=== PATIENT | female | born 1975 | race Caucasian/White ===

== ENCOUNTER 2020-07-05 10:40 | Emergency (ER) | payer OTHER, SELFPAY ==
[2020-07-05 11:55] VITALS: BP 133/85; PULSE 92; RESP 20; TEMP 36.7; O2SAT 99; BMI 33.5
--- NOTE | 2020-07-05 12:09 | HMH.EDUTC ---
[facility] [place] Disposition Clinical Impression: Chronic pruritus Disposition: Home, Self-Care Condition on Discharge: Good Instructions: Scabies, DI for Scabies Additional Instructions: Use the medication as directed. You will continue to have itching for around a week after using the medication. This is to be expected. Follow up with your primary care doctor. You may need to be referred to a bread pan greaser if you continue to have problems with itching. GO TO THE ER FOR ANY WORSENING SYMPTOMS OR CONCERNS Prescriptions: diphenhydrAMINE HCL [Benadryl] 25 mg PO Q6HP PRN #30 cap PRN Reason: Itching Transmission Status: Received by [facility] #[id number] Permethrin [Elimite] 1 applicatio TP ONCE #1 bottle Transmission Status: Received by [facility] #[id number] Referrals: PCP,No [Primary Care Provider] - Time of Disposition: 12:14 Medical Decision Making - Medical Records Medical records reviewed: No: I reviewed the patient's medical records. - Quique Inquiry Pt receiving controlled substance: No Vital Signs: 07/05/20 11:55 07/05/20 12:21 Temperature 98.1 F 98.1 F Temperature Source Oral Pulse Rate 92 H Pulse Rate [Right Brachial] 92 H Respiratory Rate 20 20 Blood Pressure 133/85 Blood Pressure [Right Arm] 133/85 Blood Pressure Mean [Right Arm] 101 Blood Pressure Source [Right Arm] Automatic Cuff Blood Pressure Position [Right Arm] Sitting 02 Sat by Pulse Oximetry 99 Oxygen Delivery Method Room Air [facility] [place] HPI - General Stated complaint: Fleas Time Seen by Provider: 07/05/20 12:09 Mode of Arrival: Ambulatory Source of Information: Patient Limitations: No Limitations Description of Symptoms (Recalled from Triage Doc. by RN): PATIENT STATES APPROX 2-3 MONTHS AGO HER DOGS HAD FLEAS; REPORTS THAT SHE TREATED HER DOGS FOR THE FLEAS AND NOW THEY CAME AFTER HER . C/O FLEA LARVAE UNDER HER SKIN HEENT Symptoms (Recalled from RN notes): No Resp Symptoms (Recalled from RN notes): No Skin Symptoms (Recalled from RN notes): Yes MS Symptoms (Recalled from RN notes): No Functional Status (Recalled from RN notes): WNL - History of Present Illness Provider Complaint: She states that she has been itching all over and she has noted ramsey on her skin where mites have burrowed into her skin. She believes they are flea larva. - Related Data Home Medications Medication Instructions Recorded Confirmed Buprenorphine HCl/Naloxone HCl 1.25 each SL DAILY 07/05/20 07/05/20 [Suboxone 8mg/2mg ODT] Dextroamphetamine/Amphetamine 20 mg PO TID 07/05/20 07/05/20 [Adderall 20 mg Tablet] Gabapentin [Gabapentin 400mg Cap] 800 mg PO TID 07/05/20 07/05/20 SUMAtriptan succinate [Imitrex] 50 mg PO DAILY 07/05/20 07/05/20 Previous Rx's Medication Instructions Recorded Permethrin [Elimite] 1 applicatio TP ONCE #1 bottle 07/05/20 diphenhydrAMINE HCL [Benadryl] 25 mg PO Q6HP PRN #30 cap 07/05/20 Allergies Allergy/AdvReac Type Severity Reaction Status Date / Time No Known Allergies Allergy Verified 07/05/20 12:05 - Worker's Comp Is this a Worker's Comp case?: No [facility] History - Hepatitis A Screen Drug use history?: No High risk sexual behaviors?: No History of sexually transmitted infection?: No Currently employed?: No Childcare worker?: No Do you have indoor plumbing?: Yes Do you have electricity?: Yes Attestation statement:: This patient has been screened for Hepatitis A risk factors. I have reviewed the patient's past medical history: Yes - Social History Alcohol Intake: never Occupational Status: other ROS Obtained: Yes All systems reviewed & no additional complaints - Constitutional Constitutional: Denies chills, Denies fever(s) - ENT Ears, Nose, Mouth, and Throat: Denies sore throat - Cardiovascular Cardiovascular: Denies chest pain - Integumentary/Breasts Skin/Breast: Reports as per HPI Physical Exam - General General appearance: alert, in no apparent distress - Head
[2020-07-05 12:21] VITALS: BP 133/85; PULSE 92; RESP 20; TEMP 36.7; O2SAT 99
== END 2020-07-05 12:25 | disposition home or self-care (01) ==
PROVIDERS: Emergency Provider Nurse Practitioner Family
DX: L29.8 Other pruritus (principal)
CPT/HCPCS: 99201